=== PATIENT | male | born 1980 | race African-American/Black ===

== ENCOUNTER 2022-10-19 17:14 | Emergency (ER) | payer MEDICAID ==
[~2022-10-19] VITALS: Ht 170.2 cm; Wt 81.0 kg
[2022-10-19 17:18] VITALS: BP 152/90; PULSE 96; RESP 18; TEMP 98.1; O2SAT 100
== END 2022-10-19 20:41 | disposition left against medical advice (07) ==
LOC: ER 17:14
DX: Z53.21 Procedure and treatment not carried out due to patient leaving prior to being seen by health care provider (principal)
CPT/HCPCS: 99281

== ENCOUNTER 2024-08-12 22:06 | Emergency (ER) | payer MEDICAID ==
[~2024-08-12] VITALS: Ht 170.2 cm; Wt 59.0 kg
[2024-08-12 22:11] VITALS: O2SAT 98
[2024-08-12] MEDS: PANTOPRAZOLE SODIUM 40 MG/VIAL IV STA (23:09)
[2024-08-12] MEDS: SODIUM CHLORIDE 0.9% 1,000 ML IV ONE (23:09)
[2024-08-12] MEDS: ONDANSETRON HCL 4MG/2ML INJ IV STA (23:10)
[2024-08-12 23:19] LABS: CHLORIDE 101 mEq/L (98-107); POTASSIUM 3.7 mEq/L (3.5-5.1); SODIUM 137 mEq/L (136-145)
[2024-08-12 23:20] LABS: CALCIUM 10.2 mg/dL (8.7-10.4); CARBON DIOXIDE 25 mEq/L (21-32)
[2024-08-12 23:22] LABS: BASOPHILS % 0.8 % (0.0-2.0); EOSINOPHILS % 0.7 % (0.0-5.0); HEMATOCRIT. 32.9 % (42.0-52.0); HEMOGLOBIN. 10.7 g/dL (14.0-18.0); MEAN CORPUSCULAR HGB CONC 32.3 g/dL (31.0-37.0); MEAN CORPUSCULAR VOLUME 83.6 fL (80.0-94.0); MONOCYTES % 7.5 % (2.0-8.0); PLATELET 360 x1000/uL (130-400); RED BLOOD CELL COUNT 3.94 mill/uL (4.7-6.1); RED CELL DISTRIBUTION WIDTH 19.5 % (11.6-14.6); WHITE BLOOD COUNT 6.6 x1000/uL (4.5-11.0)
[2024-08-12 23:25] LABS: CREATININE 0.9 mg/dL (0.6-1.3); GLUCOSE 87 mg/dL (70-105); UREA NITROGEN BLOOD 7 mg/dL (9-23)
[2024-08-12 23:27] LABS: ALANINE AMINOTRANSFERASE 15 IU/L (10-49); ALBUMIN 5.5 g/dL (3.2-4.8); ASPARTATE AMINOTRANSFERASE 38 IU/L (<34); BILIRUBIN DIRECT < 0.1 mg/dL (<=3.0); BILIRUBIN TOTAL 0.2 mg/dL (0.1-1.0); PROTEIN TOTAL 9.4 g/dL (6.0-8.3); PROTHROMBIN TIME 10.6 sec (9.6-11.0)
[2024-08-12 23:30] LABS: LACTIC ACID 2.4 mmol/L (0.4-2.0)
[2024-08-13 01:08] VITALS: BP 131/80; PULSE 85; RESP 16; TEMP 36.6; O2SAT 91
== END 2024-08-13 01:30 | disposition short-term general hospital (02) ==
LOC: ER 22:06
DX: K92.2 Gastrointestinal hemorrhage, unspecified (principal); I10 Essential (primary) hypertension; Z88.0 Allergy status to penicillin
CPT/HCPCS: 80076; 80048; 83605; 83690; 85025; 85610; 86850; 86900; 86901; 36415; 96374; 96375; 99291; 96361; J2405; J2470; J7030; Z7610

== ENCOUNTER 2024-12-03 22:22 | Emergency (ER) | payer MEDICAID ==
[~2024-12-03] VITALS: Ht 175.3 cm; Wt 65.0 kg
[~2024-12-03 22:22] MED LIST: OMEP40CA20 MT
[2024-12-03 22:25] VITALS: O2SAT 98
[2024-12-03] MEDS: ACETAMINOPHEN 500MG TABLET PO ONE (23:40)
[2024-12-04] MEDS ORDERED: ACET-2708 MT (01:00)
[2024-12-04 01:11] VITALS: BP 156/98; PULSE 76; RESP 16; TEMP 36.9; O2SAT 98
== END 2024-12-04 01:13 | disposition home or self-care (01) ==
LOC: ER 22:22
DX: S60.222A Contusion of left hand, initial encounter (principal); S00.83XA Contusion of other part of head, initial encounter; F12.90 Cannabis use, unspecified, uncomplicated; I10 Essential (primary) hypertension; F41.9 Anxiety disorder, unspecified; Z79.899 Other long term (current) drug therapy; Z88.0 Allergy status to penicillin; Y08.89XA Assault by other specified means, initial encounter; Y93.89 Activity, other specified; Y92.89 Other specified places as the place of occurrence of the external cause; Y99.8 Other external cause status; F10.90 Alcohol use, unspecified, uncomplicated; Y90.9 Presence of alcohol in blood, level not specified
CPT/HCPCS: 29125; 70486; 73110; 73130; 99284